=== PATIENT | female | born 1995 | race Caucasian/White ===

== ENCOUNTER 2016-03-05 00:59 | Inpatient (IN) | payer BC, OTHER ==
[~2016-03-05] VITALS: Ht 154.9 cm; Wt 73.0 kg
[2016-03-05] VITALS (13 sets, daily range): BP systolic 112–143; BP diastolic 58–90
[~2016-03-05 00:59] MED LIST: ALLEGRA30 MG PO; AMITRIPTYLINE H10 MG PO; DELTASONE20 M1 PO; KEFLEX500 MG PO; MEDROL DOSEPAK4 MG PO; MOTRIN800 MG PO; Motrin PO; NAPROSYN500 MG PO; NUCYNTA ER50 MG PO; PERCOCET 5/31 TABLET PO; PREDNISONE20 MG PO; PRENATAL TABLE1 EAC3 PO; PRENATAL VITAM1 EA10 PO; PROAIR HFA8.5 GM IH; ROBITUSSIN100 MG/5 M PO; VALIUM5 MG PO; VICODIN 5-3001 EACH PO; ZITHROMAX Z-PA250 MG PO
[2016-03-05 02:59] LABS: HEMATOCRIT 33.1 % (36.0-46.0); MCHC 32.3 G/DL (30.0-36.0); MCV 80.5 FL (83-99); MEAN PLAT.VOLUME 10.8 uM^3 (9.5-12.4); PLATELET COUNT 185 K/uL (156-360); RBC DIS.WIDTH-CV 12.9 % (11.8-14.6); RBC DIS.WIDTH-SD 36.7 % (39-53); RED BLOOD COUNT 4.11 M/uL (3.80-5.20); WHITE BLOOD COUNT 12.8 K/uL (4.1-10.2)
[2016-03-05 04:45] LABS: EOSINOPHIL (%) 4.3 % (0-5); EOSINOPHIL COUNT 0.6 K/uL (0-0.3); IMMATURE GRANULOCYTE (%) 0.2 % (0.0-0.7); IMMATURE GRANULOCYTE COUNT 0.3 K/uL; LYMPHOCYTE COUNT 2.5 K/uL (1.0-2.8); MONOCYTE (%) 7.5 % (3-12); NEUTROPHIL (%) 68.4 % (45-76); NEUTROPHIL COUNT 8.7 K/uL (1.8-6.4)
[2016-03-06 07:17] LABS: BASOPHIL COUNT 0.1 K/uL (0-0.1); EOSINOPHIL (%) 4.5 % (0-5); EOSINOPHIL COUNT 0.5 K/uL (0-0.3); HEMATOCRIT 33.2 % (36.0-46.0); IMMATURE GRANULOCYTE (%) 0.5 % (0.0-0.7); IMMATURE GRANULOCYTE COUNT 0.1 K/uL; LYMPHOCYTE COUNT 3.2 K/uL (1.0-2.8); MCH 26.2 PG (29.0-34.0); MCHC 31.6 G/DL (30.0-36.0); MCV 82.8 FL (83-99); MEAN PLAT.VOLUME 11.2 uM^3 (9.5-12.4); MONOCYTE (%) 8.3 % (3-12); MONOCYTE COUNT 0.9 K/uL (0-0.8); NEUTROPHIL (%) 56.3 % (45-76); NEUTROPHIL COUNT 6.1 K/uL (1.8-6.4); PLATELET COUNT 192 K/uL (156-360); RBC DIS.WIDTH-CV 13.4 % (11.8-14.6); RBC DIS.WIDTH-SD 40.7 % (39-53); RED BLOOD COUNT 4.01 M/uL (3.80-5.20); WHITE BLOOD COUNT 10.8 K/uL (4.1-10.2)
[2016-03-06 07:38] VITALS: BP 125/76
== END 2016-03-06 15:52 | disposition home or self-care (01) | DRG 775 ==
LOC: LDRP-OP 00:59 → 2WEST 01:00 → LDRP-OP 04-09 02:29
PROVIDERS: Advanced Practice Midwife
DX: O36.0930 Maternal care for other rhesus isoimmunization, third trimester, not applicable or unspecified (principal); Z37.0 Single live birth; Z3A.39 39 weeks gestation of pregnancy; O99.214 Obesity complicating childbirth; E66.9 Obesity, unspecified; Z68.30 Body mass index [BMI] 30.0-30.9, adult; O99.334 Smoking (tobacco) complicating childbirth; F17.210 Nicotine dependence, cigarettes, uncomplicated
CPT/HCPCS: 83030; 85025; 85027; 86850; 86900; 86901; C1755; J0595; J2790; J3010; J7120

== ENCOUNTER 2016-05-05 00:29 | Emergency (ER) | payer BC, OTHER ==
[~2016-05-05] VITALS: Ht 154.9 cm; Wt 73.6 kg
[2016-05-05 01:36] LABS: EOSINOPHIL (%) 4.9 % (0-5); EOSINOPHIL COUNT 0.4 K/uL (0-0.3); HEMATOCRIT 36.1 % (36.0-46.0); IMMATURE GRANULOCYTE (%) 0.1 % (0.0-0.7); IMMATURE GRANULOCYTE COUNT 0.1 K/uL; LYMPHOCYTE COUNT 2.4 K/uL (1.0-2.8); MCH 25.1 PG (29.0-34.0); MCHC 31.6 G/DL (30.0-36.0); MCV 79.3 FL (83-99); MEAN PLAT.VOLUME 9.1 uM^3 (9.5-12.4); MONOCYTE (%) 7.2 % (3-12); MONOCYTE COUNT 0.7 K/uL (0-0.8); NEUTROPHIL (%) 60.9 % (45-76); NEUTROPHIL COUNT 5.5 K/uL (1.8-6.4); PLATELET COUNT 266 K/uL (156-360); RBC DIS.WIDTH-CV 15.5 % (11.8-14.6); RBC DIS.WIDTH-SD 43.2 % (39-53); RED BLOOD COUNT 4.55 M/uL (3.80-5.20)
[2016-05-05 01:46] LABS: CHLORIDE 107 mEq/L (99-109); POTASSIUM 3.9 mEq/L (3.7-5.4); SODIUM 142 mEq/L (136-147)
[2016-05-05 01:49] LABS: GLUCOSE 114 mg/dL (70-99)
[2016-05-05 01:50] LABS: ANION GAP 10 MEQ/L (2-14)
[2016-05-05 01:51] LABS: TOTAL BILIRUBIN 0.2 mg/dL (0.0-1.0)
[2016-05-05 01:52] LABS: ALKALINE PHOSPHATASE 91 IU/L (3-129); D-DIMER ELISA 0.31 mg/L FEU (< 0.57); GFR ESTIMATE (CALCULATED) > 59 mL/min/
[2016-05-05 01:53] LABS: UREA NITROGEN (BUN) 10 mg/dL (9-23)
[2016-05-05 02:01] LABS: TROP-I INTERPRETATION NEGATIVE; TROPONIN-I < 0.01 ng/mL (0.0-0.30)
[2016-05-05 02:02] LABS: QUANTITATIVE HCG < 4.0 MIU/ML
[2016-05-05] MEDS ORDERED: PROAIR HFA8.5 GM IH (02:15)
[2016-05-05] MEDS ORDERED: DULERA 200 MCG/13 GM IH (02:15)
[2016-05-05] MEDS ORDERED: DULERA 100 MCG/13 GM IH (02:15)
[2016-05-05] MEDS ORDERED: PREDNISONE50 MG PO (02:16)
[2016-05-05] MEDS ORDERED: PROVENTIL,2.5 MG/3 M IH (02:33)
[2016-05-05 03:43] VITALS: BP 120/65
== END 2016-05-05 03:45 | disposition home or self-care (01) ==
LOC: EME 00:29
PROVIDERS: Emergency Medicine
DX: J45.901 Unspecified asthma with (acute) exacerbation (principal); K21.9 Gastro-esophageal reflux disease without esophagitis; Z87.891 Personal history of nicotine dependence
CPT/HCPCS: 71020; 80053; 84484; 84702; 85025; 85379; 93005; 94640; 94640 76; 99281; 99284; J7512

== ENCOUNTER 2016-05-15 18:48 | Inpatient (IN) | payer BC, OTHER ==
[~2016-05-15] VITALS: Ht 154.9 cm; Wt 71.4 kg
[~2016-05-15 18:48] MED LIST changes: +DULERA 100 MCG/13 GM IH; +DULERA 200 MCG/13 GM IH; +PREDNISONE50 MG PO; +PROVENTIL,2.5 MG/3 M IH
[2016-05-15 19:36] LABS: HEMATOCRIT 41.9 % (36.0-46.0); MCH 24.8 PG (29.0-34.0); MCHC 30.5 G/DL (30.0-36.0); MEAN PLAT.VOLUME 9.1 uM^3 (9.5-12.4); PLATELET COUNT 335 K/uL (156-360); RBC DIS.WIDTH-SD 47.5 % (39-53); RED BLOOD COUNT 5.17 M/uL (3.80-5.20); WHITE BLOOD COUNT 9.8 K/uL (4.1-10.2)
[2016-05-15 19:46] LABS: CHLORIDE 106 mEq/L (99-109); POTASSIUM 4.2 mEq/L (3.7-5.4); SODIUM 141 mEq/L (136-147)
[2016-05-15 19:48] LABS: GLUCOSE 98 mg/dL (70-99)
[2016-05-15 19:49] LABS: ANION GAP 10 MEQ/L (2-14)
[2016-05-15 19:51] LABS: GFR ESTIMATE (CALCULATED) > 59 mL/min/
[2016-05-15 19:52] LABS: UREA NITROGEN (BUN) 10 mg/dL (9-23)
[2016-05-15 20:03] LABS: QUANTITATIVE HCG < 4.0 MIU/ML
[2016-05-15] MEDS ORDERED: DULERA 100 MCG/13 GM IH (21:47)
[2016-05-16 06:48] LABS: EOSINOPHIL (%) 0 % (0-5); HEMATOCRIT 41.7 % (36.0-46.0); IMMATURE GRANULOCYTE (%) 0.6 % (0.0-0.7); INSTRUMENT ABS NEUTROPHIL CT 6.5 K/uL; LYMPHOCYTE COUNT 0.7 K/uL (1.0-2.8); MCH 24.7 PG (29.0-34.0); MCHC 30.2 G/DL (30.0-36.0); MCV 81.6 FL (83-99); MONOCYTE (%) 0.7 % (3-12); MONOCYTE COUNT 0.1 K/uL (0-0.8); NEUTROPHIL (%) 89.2 % (45-76); NEUTROPHIL COUNT 6.5 K/uL (1.8-6.4); PLATELET COUNT 337 K/uL (156-360); RBC DIS.WIDTH-CV 16.1 % (11.8-14.6); RBC DIS.WIDTH-SD 48.3 % (39-53); RED BLOOD COUNT 5.11 M/uL (3.80-5.20); WHITE BLOOD COUNT 7.3 K/uL (4.1-10.2)
[2016-05-16 06:53] VITALS: BP 122/80
[2016-05-16 06:59] LABS: CHLORIDE 109 mEq/L (99-109); POTASSIUM 4.7 mEq/L (3.7-5.4); SODIUM 141 mEq/L (136-147)
[2016-05-16 07:01] LABS: GLUCOSE 136 mg/dL (70-99)
[2016-05-16 07:02] LABS: ANION GAP 11 MEQ/L (2-14)
[2016-05-16 07:04] LABS: GFR ESTIMATE (CALCULATED) > 59 mL/min/
[2016-05-16 07:05] LABS: UREA NITROGEN (BUN) 10 mg/dL (9-23)
[2016-05-16 07:55] VITALS: BP 133/68
[2016-05-16 08:57] LABS: INFLUENZA A VIRAL ANTIGEN NEGATIVE; INFLUENZA B VIRAL ANTIGEN NEGATIVE
[2016-05-16 09:13] LABS: INTERNAL CONTROL VALID? YES
[2016-05-16 11:29] VITALS: BP 128/73
[2016-05-16 16:00] VITALS: BP 126/64
[2016-05-16 19:51] VITALS: BP 129/71
[2016-05-16 23:39] VITALS: BP 135/65
[2016-05-17 03:14] LABS: METH RESISTANT S AUREUS PCR NEGATIVE (NEGATIVE)
[2016-05-17 03:20] LABS: PROBE CHECK PASS; SPECIMEN PROCESSING CONTROL PASS
[2016-05-17 03:44] VITALS: BP 140/84
[2016-05-17 07:32] VITALS: BP 135/80
[2016-05-17 07:55] LABS: ANION GAP 10 MEQ/L (2-14); CHLORIDE 111 MEQ/L (99-109); GFR ESTIMATE (CALCULATED) > 59 mL/min/; GLUCOSE 117 mg/dL (70-99); POTASSIUM 4.4 MEQ/L (3.7-5.4); SAMPLE HEMOLYSIS CHECK 0; SAMPLE ICTERIC CHECK 0; SAMPLE LIPEMIA CHECK 0; SODIUM 145 MEQ/L (136-147); UREA NITROGEN (BUN) 11 mg/dL (9-23)
[2016-05-17] MEDS ORDERED: GABAPENTIN600 MG PO (11:32)
[2016-05-17 15:13] VITALS: BP 133/88
[2016-05-17 19:44] VITALS: BP 135/73
[2016-05-18 00:20] VITALS: BP 119/61
[2016-05-18 04:20] VITALS: BP 117/66
[2016-05-18 07:42] VITALS: BP 127/56
[2016-05-18 11:12] VITALS: BP 120/77
[2016-05-18] MEDS ORDERED: ADVAIR HFA120 INHALA IH (11:35)
[2016-05-18] MEDS ORDERED: PROAIR HFA8.5 GM IH (11:36)
[2016-05-18] MEDS ORDERED: PREDNISONE10 MG PO (11:37)
[2016-05-18] MEDS ORDERED: OXYCODONE-APAP1 EACH PO (11:37)
[2016-05-18] MEDS ORDERED: CEFTIN500 MG PO (13:36)
== END 2016-05-18 12:13 | disposition home or self-care (01) | DRG 189 ==
LOC: EME 18:48 → EDOF 22:36 → 4SOUTH 22:36
PROVIDERS: Family Medicine; Hospitalist; Physician Assistant
DX: J96.01 Acute respiratory failure with hypoxia (principal); J18.9 Pneumonia, unspecified organism; J45.901 Unspecified asthma with (acute) exacerbation; E87.2 Acidosis; E86.0 Dehydration; G25.81 Restless legs syndrome; Y95 Nosocomial condition; Z87.891 Personal history of nicotine dependence; Z88.5 Allergy status to narcotic agent
CPT/HCPCS: 71275; 80048; 80202; 83605; 84702; 85025; 85027; 87040; 87070; 87205; 87449; 87502; 87641; 93005; 93306; 94640; 94640 76; 94644; 94667; 94799; 99202; 99281; 99285; J0456; J0692; J0696; J1644; J2930; J3370; J3475; J7030; J7050; J7512

== ENCOUNTER 2016-06-17 17:09 | Emergency (ER) | payer BC ==
[~2016-06-17] VITALS: Ht 154.9 cm; Wt 69.5 kg
[~2016-06-17 17:09] MED LIST changes: +ADVAIR HFA120 INHALA IH; +CEFTIN500 MG PO; +GABAPENTIN600 MG PO; +OXYCODONE-APAP1 EACH PO; +PREDNISONE10 MG PO
[2016-06-17] MEDS ORDERED: ADVAIR 250/501 DISK IH (19:25)
[2016-06-17] MEDS ORDERED: PROAIR HFA8.5 GM IH (19:25)
[2016-06-17] MEDS ORDERED: PREDNISONE50 MG PO (19:25)
[2016-06-17] MEDS ORDERED: PROVENTIL,2.5 MG/3 M IH (19:43)
[2016-06-17 20:04] VITALS: BP 107/57
== END 2016-06-17 20:04 | disposition home or self-care (01) ==
LOC: EME 17:09
DX: J45.41 Moderate persistent asthma with (acute) exacerbation (principal); Z87.891 Personal history of nicotine dependence; Z88.6 Allergy status to analgesic agent; Z88.8 Allergy status to other drugs, medicaments and biological substances
CPT/HCPCS: 71010; 99281; 99284

== ENCOUNTER 2016-09-08 02:28 | Emergency (ER) | payer BC ==
[~2016-09-08] VITALS: Ht 154.9 cm; Wt 69.6 kg
[~2016-09-08 02:28] MED LIST changes: +ADVAIR 250/501 DISK IH
[2016-09-08 02:31] VITALS: BP 158/94
== END 2016-09-08 02:32 | disposition left against medical advice (07) ==
LOC: EME 02:28
DX: K08.89 Other specified disorders of teeth and supporting structures (principal); Z53.21 Procedure and treatment not carried out due to patient leaving prior to being seen by health care provider